=== PATIENT | female | born 1990 | race African-American/Black ===

== ENCOUNTER 2016-10-29 10:02 | Emergency (ER) | payer OTHER ==
[~2016-10-29] VITALS: Ht 170.2 cm; Wt 120.0 kg
[~2016-10-29 10:02] MED LIST: ACYC-1 PO; NITR-29 PO
[2016-10-29 10:03] VITALS: BP 145/90; PULSE 98; RESP 20; TEMP 98.8; O2SAT 96
--- NOTE | 2016-10-29 11:11 | PD ---
HPI Chief Complaint: Abdominal Pain Time Seen by Provider: 11:11 Travel History International Travel<30 days: No Contact w/Intl Traveler<30days: No Traveled to known affect area: No History of Present Illness HPI 26-year-old female came to the emergency room because of lightheadedness, dry mouth and increased urinary frequency. She has history of diabetes and her family and is concerned. No history of discharge or spotting. Vital signs were stable. No history of syncopal episode. Patient does have a primary care doctor and was last seen in April of last year. She is not on any medications. [facility] Past Medical History Narrative Medical List of her past medical, surgical, social and family history was reviewed from the nursing note. 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, CHLAMYDIA, Vaginitis gardnerel,HSV2 ) Respiratory: No Seizures: No Sickle Cell Disease: No Sleep Apnea: No ?: Not LMP: 10/10/16 : 1 Past Surgical History Surgical History: No Previous Surgery Abdominal Surgery: No Cardiac Surgery: No Section: Yes Ear Surgery: No Endocrine Surgery: No Eye Surgery: No Genitourinary Surgery: No Gynecologic Surgery: No Neurologic Surgery: No Oral Surgery: No Thoracic Surgery: No Other Surgery: No Social History Alcohol Use: Yes ("HEAVY DRINKER") Tobacco Use: Yes Substance Use: No Allergies-Medications (Allergen,Severity, Reaction): Coded Allergies: No Known Allergies (Verified , 06/24/11) Comments No known drug allergies. Reported Meds & Prescriptions Reported Meds & Active Scripts Active Narrative Medication List of her home medications reviewed from the nursing note. Review of Systems Except as stated in HPI: all other systems reviewed are Neg Physical Exam Narrative GENERAL: Awake, alert, morbidly obese, obvious distress SKIN: Focused skin assessment warm/dry. HEAD: Atraumatic. Normocephalic. EYES: Pupils equal and round. No scleral icterus. No injection or drainage. ENT: No nasal bleeding or discharge. Mucous membranes pink and moist. NECK: Trachea midline. No JVD. CARDIOVASCULAR: Regular rate and rhythm. No murmur appreciated. RESPIRATORY: No accessory muscle use. Clear to auscultation. Breath sounds equal bilaterally. GASTROINTESTINAL: Abdomen soft, non-tender, nondistended. Hepatic and splenic margins not palpable. MUSCULOSKELETAL: No obvious deformities. No clubbing. No cyanosis. No edema. NEUROLOGICAL: Awake and alert. No obvious cranial nerve deficits. Motor grossly within normal limits. Normal speech. PSYCHIATRIC: Appropriate mood and affect; insight and judgment normal. Data Data Last Documented VS Vital Signs Date Time Temp Pulse Resp B/P Pulse Ox O2 Delivery O2 Flow Rate FiO2 10/29/16 10:03 98.8 98 20 145/90 96 Room Air Orders Urinalysis - C+S If Indicated (10/29/16 11:15) Blood Glucose (10/29/16 11:15) Labs Laboratory Tests Test 10/29/16 11:55 Urine Color YELLOW Urine Turbidity CLEAR Urine pH 6.0 Urine Specific [place] 1.019 Urine Protein NEG mg/dL Urine Glucose (UA) NEG mg/dL Urine Ketones 10 mg/dL Urine Occult Blood NEG Urine Nitrite NEG Urine Bilirubin NEG Urine Urobilinogen LESS THAN 2.0 MG/DL Urine Leukocyte Esterase NEG Urine WBC LESS THAN 1 /hpf Urine Squamous Epithelial 1 /hpf Cells Urine Mucus FEW /lpf Microscopic Urinalysis Comment CULT NOT INDICATED MDM Medical Decision Making Medical Screen Exam Complete: Yes Emergency Medical Condition: Yes Medical Record Reviewed: Yes Differential Diagnosis Hyperglycemia, UTI Narrative Course 11:49 AM bedside blood glucose was 77. Awaiting for the urine analysis. I'll the patient that if all the test comes back normal she will be discharged home and she needs to follow up with her primary care to get further blood testing done like glucose tolerance test and the blood profile. 12:34 PM UA showed some ketones but otherwise negative. I'll discharge her home. Procedures EKG Prior to Arrival: No Diagnosis Primary Impression: Dehydration Referrals: Primary Care Physician Additional Instructions: Please return to the ER if the condition worsens or any other new concerns. Otherwise follow-up with her primary care doctor in couple days. They should be able to check for a glucose tolerance test and lipid profile. Med/Other Pt SpecificInfo: No Change to Meds Disposition: 01 DISCHARGE HOME Condition: Stable Cb Thornton MD October 29, 2016 11:11 Cb Thornton MD October 29, 2016 11:11
[2016-10-29 12:15] LABS: BLOOD, URINE NEG (NEG); COMMENT (UR) CULT NOT INDICATED; CULTURE IF INDICATED CULT NOT INDICATED; GLUCOSE,URINE NEG (NEG); KETONE, URINE 10 mg/dL (NEG); MUCUS URINE FEW /lpf (OCC); NITRITE,URINE NEG (NEG); SQUAMOUS EPITHELIAL CELL URINE 1 /hpf (0-5); URINE COLOR YELLOW (YELLW/STRAW)
== END 2016-10-29 12:43 | disposition home or self-care (01) ==
LOC: NEPD 10:02
DX: E86.0 Dehydration (principal); E11.9 Type 2 diabetes mellitus without complications; R35.0 Frequency of micturition; Z72.0 Tobacco use
CPT/HCPCS: 81001; 99284